=== PATIENT | female | born 1995 | race Caucasian/White ===

== ENCOUNTER 2024-07-03 04:49 | Emergency (ER) | payer SELFPAY ==
[2024-07-03 04:49] VITALS: BP 147/77; PULSE 83; RESP 14; TEMP 36.7; O2SAT 97
[2024-07-03] MEDS: TETANUS,DIPHTHERIA,AC PERTUSSIS ADULT (0.5 ML) BOOSTRIX IM (07:44)
--- NOTE | 2024-07-03 08:49 | ED.WOUNDLAC ---
HPI - Wound/Laceration General Chief Complaint: Wound/Laceration Stated Complaint: right hand lac Time Seen by Provider: 07/03/24 07:02 History of Present Illness HPI narrative: Pt cut hand on shelf at work. Unsure of last tetanus. Pt denies other injury. Related Data Allergies Allergy/AdvReac Type Severity Reaction Status Date / Time No Known Allergies Allergy Unknown Verified 07/03/24 04:54 Review of Systems Review of Systems: All systems reviewed & are unremarkable except as noted in HPI and below PMFSH Family History Family History (Updated 01/25/18 @ 09:50 by DOCTOR UNKNOWN) Mother Family history of malignant neoplasm of ovary Social History Social History Smoking status: Current every day smoker Alcohol intake: current Exam Const: General: healthy appearing Nutritional Appearance: well nourished Orientation/consciousness: patient oriented x3 Limitations: no limitations Neck: Neck: normal visual inspection Resp: Effort & Inspection: normal respiratory effort Auscultation: clear to auscultation bilaterally Cardio: Rate: regular rate Rhythm: regular rhythm GI: GI Palp: Yes Soft to palpation Auscultation: normal bowel sounds Skin: Wounds: wounds noted Other: 3 cm laceration dorsum of right hand Neuro: General: patient oriented x3, moves all extremities, no focal motor deficits and CN's II-XI intact bilaterally Speech: normal speech Extrem: General: no clubbing, cyanosis or edema Psych: Mental Status: mental status grossly normal Affect: normal affect Attitude: cooperative Course Vital Signs Vital signs: Vital Signs Temperature 98.1 F 07/03/24 04:49 Pulse Rate 83 07/03/24 04:49 Respiratory Rate 14 07/03/24 04:49 Blood Pressure 147/77 H 07/03/24 04:49 Pulse Oximetry 97 07/03/24 04:49 Oxygen Delivery Room Air 07/03/24 04:49 Temperature 98.1 F 07/03/24 04:49 Pulse Rate 83 07/03/24 04:49 Respiratory Rate 14 07/03/24 04:49 Blood Pressure 147/77 H 07/03/24 04:49 Pulse Oximetry 97 07/03/24 04:49 Oxygen Delivery Room Air 07/03/24 04:49 Procedures Laceration Laceration 1: Size (cm): 3 Description: linear Depth: simple, single layer Local Anesthetic: lidocaine 1% Amount of anesthesia used (mL): 6 Pre-repair: wound explored ====== Skin Level ====== Skin layer closed with: nylon Size (cm): 4-0 Number of sutures: 5 Technique: simple, interrupted ====== Subcutaneous Layer ====== ====== Muscle Layer ====== ====== Tendon Layer ====== Dressing: 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 wound well approximated. Pt tolerated well. Discharge Plan Discharge Clinical Impression: Laceration Patient Disposition: Home, Self-Care Condition: Improved Instructions: Antibiotic Form, Care For Your Stitches (ED), Laceration (ED) Additional Instructions: suture removal 10-12 days Patient Language: [place] Follow-up/Referrals: Shorty Yuen MD [Physician] - UNKNOWN,DOCTOR [Primary Care Provider] - Stand Alone Forms: Work/School Release IP
== END 2024-07-03 09:02 | disposition home or self-care (01) ==
PROVIDERS: Emergency Provider Emergency Medicine
DX: S61.411A Laceration without foreign body of right hand, initial encounter (principal); W45.8XXA Other foreign body or object entering through skin, initial encounter; Z23 Encounter for immunization
CPT/HCPCS: 12002; 90471; 90715; 99282